=== PATIENT | male | born 1995 | race African-American/Black ===

== ENCOUNTER 2024-06-20 11:25 | Emergency (ER) | payer SELFPAY ==
[2024-06-20 11:45] LABS: Absolute Basophils 0.1 K/uL (0-0.5); Absolute Eosinophils 0.3 K/uL (0-0.5); Absolute Lymphocytes (CBC) 1.1 K/uL (0.7-4.9); Absolute Monocytes 0.9 K/uL (0.1-1.3); Absolute Neutrophil 8.1 K/uL (1.8-8.0); Basophils % 0.6 % (0-1.3); Eosinophils % 2.5 % (0-4.4); Hematocrit 38.2 % (39.6-49.0); Hemoglobin 12.8 g/dL (13.6-17.9); Lymphocytes % 10.8 % (15.3-44.8); MCH 29.7 pg (27.0-35.0); MCHC 33.6 g/dL (32.0-36.0); MCV 88.4 fL (80-100); MPV 8.8 fL (7.6-11.3); Monocytes % 8.7 % (3.3-12.3); Neutrophils % 77.4 % (41.7-73.7); Platelets 326 thou/uL (152-406); RBC Red Blood Cell Count 4.32 M/uL (4.33-5.43); Red Cell Distribution Width 12.8 % (12.1-15.2)
[2024-06-20 12:02] LABS: Anion Gap 6.9 mEq/L (5.0-15.0); Potassium 3.9 mEq/L (3.5-5.1)
--- NOTE | 2024-06-20 12:38 | RAD REPORT ---
EXAM DESCRIPTION: RAD - Foot Right 3 View - 06/20/2024 12:26 pm CLINICAL HISTORY: Pain;Swelling COMPARISON: No comparisons FINDINGS: Significant soft tissue swelling is seen involving the anterior aspect of the forefoot. No acute fracture or dislocation.
--- NOTE | 2024-06-20 12:40 | RAD REPORT ---
EXAM DESCRIPTION: RAD - Ankle Right 3 View - 06/20/2024 12:26 pm CLINICAL HISTORY: Pain;Swelling COMPARISON: No comparisons FINDINGS: Moderate soft tissue swelling is seen about the ankle. Tiny calcaneal spur. No acute fract ure or dislocation.
--- NOTE | 2024-06-20 13:14 | EDPHYS ---
Physician Documentation [facility] Name: Keo Bonilla Jr Age: 29 yrs Sex: Male : 1995 Arrival Date: 06/20/2024 Time: 11:25 Bed DX1 Private MD: ED Physician Daniel Arredondo HPI: 06/20 12:43 This 29 yrs old Black Male presents to ER via EMS with complaints of Ankle Swelling. rn 12:43 The patient presents with swelling. The complaints affect the right ankle. Onset: The rn symptoms/episode began/occurred at an unknown time. Modifying factors: The symptoms are alleviated by nothing, the symptoms are aggravated by weight bearing, wearing shoes. The patient has not experienced similar symptoms in the past. Patient reports right ankle swelling, unknown onset but states recently got new shoes and feels like they are too tight. Patient is homeless. Told by somebody today that his ankle did not look right and he needed to evaluation, came in by ambulance. Patient denies any pain. No history of DVT or PE. No fever or chills.. Historical: - Allergies: 11:30 No Known Allergies; iw - Home Meds: 11:30 None [Active]; iw - PMHx: 11:30 None; iw - Immunization history:: Adult Immunizations up to date. - Infectious Disease History:: Denies. - Family history:: not pertinent. - Hospitalizations: : No recent hospitalization is reported. - Social history:: Smoking status: Patient denies any tobacco usage or history of. ROS: 12:43 Constitutional: Negative for fever, chills, and weight loss, MS/Extremity: Positive for rn right ankle swelling Exam: 12:43 Constitutional: This is a well developed, well nourished patient who is awake, alert, rn and in no acute distress. MS/ Extremity: Pulses equal, no cyanosis. Neurovascular intact. + Mild erythema right inner ankle, has open wounds anterior to the ankle. Neuro: Awake and alert, GCS 15 Vital Signs: 11:29 BP 152 / 97; Pulse 70; Resp 16; Temp 97.8(TE); Pulse Ox 99% on R/A; Weight 83.91 kg; iw Height 6 ft. 0 in. ; 11:29 Body Mass Index 25.09 (83.91 kg, 182.88 cm) iw MDM: 11:27 Patient medically screened. rn 12:43 Differential diagnosis: fracture, sprain, arthritis, cellulitis. Data reviewed: vital rn signs, nurses notes, and as a result, I will discharge patient. Refusal of service: The patient/guardian displays adequate decision making capability and despite a detailed discussion of alternatives, benefits, risks, and consequences refuses: Patient refuses ultrasound. Special discussion: I discussed with the patient/guardian in detail that at this point there is no indication for admission to the hospital. It is understood, however, that if the symptoms persist or worsen the patient needs to return immediately for re-evaluation. ED course: X-ray images negative for fracture or dislocation. Patient refused ultrasound. Understands risks of denying ultrasound to rule out DVT. Will discharge with return precautions and antibiotics. Told him to get bigger shoes. . 06/20 11:28 Order name: CBC with Diff; Complete Time: 12:41 rn 06/20 11:28 Order name: Basic Metabolic Panel; Complete Time: 12:41 rn 06/20 11:28 Order name: BNP; Complete Time: 12:41 rn 06/20 11:28 Order name: XRAY Ankle RIGHT 3 view; Complete Time: 12:41 rn 06/20 11:28 Order name: XRAY Foot RIGHT 3 View; Complete Time: 12:41 rn 06/20 11:28 Order name: IV Start; Complete Time: 11:30 rn Administered Medications: No medications were administered Disposition Summary: 06/20/24 13:14 Discharge Ordered Notes: Location: Home rn Problem: new rn Symptoms: have improved rn Condition: Stable rn Diagnosis - Cellulitis of right lower limb rn - Edema, unspecified rn Followup: rn - With: Private Physician - When: As needed - Reason: Recheck today's complaints, Re-evaluation by your physician Discharge Instructions: - Discharge Summary Sheet rn - Cellulitis, Adult rn - Peripheral Edema rn Forms: - Medication Reconciliation Form rn - Antibiotic safety intern - Prescription Opioid Use rn - Patient Portal Instructions rn - Leadership Thank You Letter rn Prescriptions: - Clindamycin HCl 300 mg Oral Capsule - take 1 capsule ORAL route every 6 hours for 10 days; 40 capsule; Refills: 0, rn Product Selection Permitted Signatures: Dispatcher [employer] EDMS Jay, Lula, RN RN iw Arredondo, Daniel, MD MD rn Starks, Gracie, RN RN hb Corrections: (The following items were deleted from the chart) 11: 11:30 CBC+H.LAB.BRZ ordered. EDMS EDMS 11: 11:30 BASIC METABOLIC PANEL+C.LAB.BRZ ordered. EDMS EDMS 11: 11:30 PROBNP+C.LAB.BRZ ordered. EDMS EDMS 12:35 11:30 Extremity Venous Uni Ltd+US.RAD.BRZ ordered. EDMS EDMS
--- NOTE | 2024-06-20 13:14 | ER ---
Nurse's Notes [facility] Name: Keo Bonilla Jr Age: 29 yrs Sex: Male : 1995 Arrival Date: 06/20/2024 Time: 11:25 Bed DX1 Private MD: Diagnosis: Cellulitis of right lower limb;Edema, unspecified Presentation: 06/20 11:29 Chief complaint: Patient states: right ankle swelling X 2 days. Coronavirus screen: At iw this time, the client does not indicate any symptoms associated with coronavirus-19. Ebola Screen: No symptoms or risks identified at this time. Initial Sepsis Screen: Does the patient meet any 2 criteria? No. Patient's initial sepsis screen is negative. Does the patient have a suspected source of infection? No. Patient's initial sepsis screen is negative. Risk Assessment: Do you want to hurt yourself or someone else?. Onset of symptoms was June 18, 2024. 11:29 Method Of Arrival: EMS: [facility] iw 11:29 Acuity: MOR 3 iw Historical: - Allergies: 11:30 No Known Allergies; iw - Home Meds: 11:30 None [Active]; iw - PMHx: 11:30 None; iw - Immunization history:: Adult Immunizations up to date. - Infectious Disease History:: Denies. - Family history:: not pertinent. - Hospitalizations: : No recent hospitalization is reported. - Social history:: Smoking status: Patient denies any tobacco usage or history of. Screenin:37 [facility] ED Fall Risk Assessment (Adult) History of falling in the last 3 months, iw including since admission No falls in past 3 months (0 pts) Confusion or Disorientation No (0 pts) Intoxicated or Sedated No (0 pts) Impaired Gait No (0 pts) Mobility Assist Device Used No (0 pt) Altered Elimination No (0 pt) Score/Fall Risk Level 0 - 2 = Low Risk Oriented to surroundings, Maintained a safe environment. Abuse screen: Denies threats or abuse. Denies injuries from another. Nutritional screening: On. Tuberculosis screening: No symptoms or risk factors identified. Assessment: 11:36 General: Appears in no apparent distress. Behavior is calm, cooperative. Pain: iw Complains of pain in right foot and left foot. Neuro: Level of Consciousness is awake, alert, obeys commands, Oriented to person, place, time, situation, Moves all extremities. Full function. Cardiovascular: Patient's skin is warm and dry. Respiratory: Airway is patent Respiratory effort is even, unlabored, Respiratory pattern is. GI: Abdomen is non-distended. Derm:. Musculoskeletal: Swelling present in right frye, anterior aspect of right ankle and dorsum of right foot. 13:11 Reassessment: Patient appears in no apparent distress at this time. Patient and/or iw family updated on plan of care and expected duration. Pain level reassessed. Patient is alert, oriented x 3, equal unlabored respirations, skin warm/dry/pink. Vital Signs: 11:29 BP 152 / 97; Pulse 70; Resp 16; Temp 97.8(TE); Pulse Ox 99% on R/A; Weight 83.91 kg; iw Height 6 ft. 0 in. ; 11:29 Body Mass Index 25.09 (83.91 kg, 182.88 cm) ED Course: 11:27 Patient arrived in ED. rn 11:27 Daniel Arredondo MD is Attending Physician. rn 11:29 Lula Thompson, CHAVO is Primary Nurse. iw 11:30 Triage completed. iw 11:30 Arm band placed on. iw 11:31 Initial lab(s) drawn, by me, sent to lab. Inserted saline lock: 20 gauge in right iw antecubital area, using aseptic technique. Blood collected. Flushed with 10 mL NS. 12:08 Patient moved to radiology via wheelchair. md2 12:24 X-ray completed. Patient taken to an internal wait recliner, Patient moved back from ia2 radiology. 12:27 XRAY Ankle RIGHT 3 view In Process Unspecified. EDMS 12:27 XRAY Foot RIGHT 3 View In Process Unspecified. EDMS 13:20 Patient has correct armband on for positive identification. Provided Education on: hb follow up, meds. 13:20 No provider procedures requiring assistance completed. IV discontinued, intact, hb bleeding controlled, No redness/swelling at site. Pressure dressing applied. Administered Medications: No medications were administered Medication: 11:38 VIS not applicable for this client. iw Outcome: 13:14 Discharge ordered by MD. rn 13:21 Discharged to home ambulatory, hb 13:21 Condition: stable 13:21 Discharge instructions given to patient, Instructed on discharge instructions, follow up and referral plans. medication usage, Demonstrated understanding of instructions, follow-up care, medications, Prescriptions given X 1, 13:21 Patient left the ED. Signatures: Dispatcher [employer] Lula Maciel RN RN Daniel Arredondo MD MD rn Baxter, Heather, RN RN Louise Urbano Corrections: (The following items were deleted from the chart) 11:58 11:29 BP 152 / 97; Pulse 70bpm; Resp 16bpm; Pulse Ox 99% RA; 83.91 kg; Height 6 ft. 0 iw in.; BMI: 25.0; iw
[2024-06-20 13:34] VITALS: BP 152/97; TEMP 97.8; O2SAT 99
== END 2024-06-20 13:21 | disposition home or self-care (01) ==
LOC: ER 11:25
DX: L03.115 Cellulitis of right lower limb (principal); R60.9 Edema, unspecified; Z59.00 Homelessness unspecified
CPT/HCPCS: 36415; 80048; 83880; 85025; 99284